=== PATIENT | female | born 1960 | race Caucasian/White ===

== ENCOUNTER → 2018-07-31 | Outpatient (CLI) | payer MEDICARE ==
[~2018-07-31] MED LIST: METH20TA8 PO; QUET200T4 PO; TRAZ300T2 PO; VENL100T PO; VENL75TA PO
== END | disposition home or self-care (01) ==
LOC: CFH 14:18
PROVIDERS: ATTEND Family Medicine
DX: J84.10 Pulmonary fibrosis, unspecified (principal)
CPT/HCPCS: 71046

== ENCOUNTER → 2018-10-06 | Outpatient (CLI) | payer MEDICARE ==
[~2018-10-06] MED LIST changes: +OMNIPAQUE 350 MG/ML, 100ML BOTTLE ONE
== END | disposition home or self-care (01) ==
LOC: CFH 12:33
PROVIDERS: ATTEND Family Medicine
DX: N28.1 Cyst of kidney, acquired (principal)
CPT/HCPCS: 74177; Q9967

== ENCOUNTER → 2019-11-26 | Outpatient (CLI) | payer MEDICARE ==
[~2019-11-26] MED LIST changes: -OMNIPAQUE 350 MG/ML, 100ML BOTTLE ONE
== END | disposition home or self-care (01) ==
LOC: EDSTATUS 11-18 12:30 → RAD 12:33 → EDSTATUS 13:00
PROVIDERS: ATTEND Nurse Practitioner
DX: Z12.31 Encounter for screening mammogram for malignant neoplasm of breast (principal); Z12.2 Encounter for screening for malignant neoplasm of respiratory organs; N64.89 Other specified disorders of breast; I25.10 Atherosclerotic heart disease of native coronary artery without angina pectoris; J84.10 Pulmonary fibrosis, unspecified; J98.4 Other disorders of lung; Z87.891 Personal history of nicotine dependence
CPT/HCPCS: 77063; 77067; G0297

== ENCOUNTER 2019-12-15 19:21 | Emergency (ER) | payer MEDICARE ==
[~2019-12-15] VITALS: Ht 165.1 cm; Wt 62.4 kg
[2019-12-15] MEDS ORDERED: ASPIRIN 81 MG TABLET CHEW PO ONE (20:00)
--- NOTE | 2019-12-15 20:21 | NUR ---
PT. TO ROOM FROM LOBBY AT THIS TIME.
[2019-12-15] MEDS ORDERED: ASPIRIN 81 MG TABLET CHEW ONE (20:29)
--- NOTE | 2019-12-15 20:32 | NUR ---
VONNIE RN: PT MEDICATED PER EMAR. 5 RIGHTS ADDRESSED. ALL MONITORING EQUIPMENT APPLIED. NSR ON THE MONITOR, NO ST CHANGES PRESENT, NO ECTOPY NOTED.
[2019-12-15 21:20] VITALS: BP 130/95
[2019-12-15 21:34] LABS: BASOPHILS # (AUTO) 0.06 x10^3/uL (0-0.1); BASOPHILS % (AUTO) 1 % (0-1); EOSINOPHILS # (AUTO) 0.19 x10^3/uL (0-0.4); EOSINOPHILS % (AUTO) 3 % (1-7); LYMPHOCYTES # (AUTO) 3.07 x10^3/uL (1-3.4); LYMPHOCYTES % (AUTO) 50 % (22-44); MD NO; MEAN CORPUSCULAR HEMOGLOBIN 31.5 pg (27.0-34.8); MEAN CORPUSCULAR HGB CONC 33.3 g/dL (32.4-35.8); MEAN CORPUSCULAR VOLUME 94.8 fL (80-100); MEAN PLATELET VOLUME 8.6 fL (7.4-10.4); MONOCYTES # (AUTO) 0.66 x10^3/uL (0.2-0.8); MONOCYTES % (AUTO) 11 % (2-9); NEUTROPHILS # (AUTO) 2.23 x10^3/uL (1.8-6.8); NEUTROPHILS % (AUTO) 36 % (42-75); PLATELET COUNT 168 x10^3/uL (130-400); RED BLOOD COUNT 4.22 x10^6/uL (3.82-5.3); RED CELL DISTRIBUTION WIDTH 14.5 % (9.6-15.2)
[2019-12-15 21:47] LABS: ALBUMIN 3.7 g/dL (3.4-5.0); ANION GAP 6 mmol/L (5-15); CALCIUM 8.9 mg/dL (8.5-10.1); CHLORIDE 110 mmol/L (98-107)
--- NOTE | 2019-12-15 21:50 | NUR ---
provided pt with mouth swabs
[2019-12-15 21:52] LABS: CREATININE 0.92 mg/dL (0.55-1.02); TROPONIN I < 0.015 ng/mL (0.000-0.045)
== END 2019-12-15 23:01 | disposition home or self-care (01) ==
LOC: ED 20:45
DX: R07.89 Other chest pain (principal)
CPT/HCPCS: 36415; 71046; 80048; 82040; 84484; 85025; 93005; 99285

== ENCOUNTER → 2020-07-08 | Outpatient (CLI) | payer MEDICARE ==
[~2020-07-08] MED LIST changes: +ALPRazolam 1MG TAB ONE
== END | disposition home or self-care (01) ==
LOC: RAD 13:50
PROVIDERS: ATTEND Nurse Practitioner Family
DX: M50.321 Other cervical disc degeneration at C4-C5 level (principal); M47.812 Spondylosis without myelopathy or radiculopathy, cervical region; M48.02 Spinal stenosis, cervical region; M25.78 Osteophyte, vertebrae; R29.898 Other symptoms and signs involving the musculoskeletal system
CPT/HCPCS: 72141

== ENCOUNTER → 2020-07-28 | Outpatient (CLI) | payer MEDICARE ==
[~2020-07-28] MED LIST changes: -ALPRazolam 1MG TAB ONE
== END | disposition home or self-care (01) ==
LOC: CFH 08:17
PROVIDERS: ATTEND Internal Medicine Cardiovascular Disease
DX: R07.89 Other chest pain (principal); R06.02 Shortness of breath
CPT/HCPCS: 78452; 93017; A9502

== ENCOUNTER 2020-09-22 22:07 | Emergency (ER) | payer MEDICARE ==
[~2020-09-22] VITALS: Ht 167.6 cm; Wt 60.2 kg
[2020-09-22 22:14] VITALS: BP 113/74
[2020-09-22] MEDS ORDERED: SODIUM CHLORIDE 0.9% 1,000ML IVBOLUS ONE (23:00)
[2020-09-22 23:07] LABS: BASOPHILS % (AUTO) 1 % (0-1); EOSINOPHILS % (AUTO) 0 % (1-7); LYMPHOCYTES % (AUTO) 31 % (22-44); MEAN CORPUSCULAR HEMOGLOBIN 31.5 pg (27.0-34.8); MEAN CORPUSCULAR HGB CONC 33.4 g/dL (32.4-35.8); MEAN PLATELET VOLUME 8.3 fL (7.4-10.4); MONOCYTES % (AUTO) 10 % (2-9); NEUTROPHILS % (AUTO) 59 % (42-75); PLATELET COUNT 145 x10^3/uL (130-400); RED BLOOD COUNT 4.54 x10^6/uL (3.82-5.3); RED CELL DISTRIBUTION WIDTH 13.5 % (9.6-15.2)
[2020-09-22 23:14] LABS: MD NO
[2020-09-22 23:19] LABS: ALANINE AMINOTRANSFERASE 19 U/L (12-78); ANION GAP 6 mmol/L (5-15); CALCIUM 9.3 mg/dL (8.5-10.1); CHLORIDE 102 mmol/L (98-107); CREATININE 1.12 mg/dL (0.55-1.02)
[2020-09-22 23:21] LABS: ALKALINE PHOSPHATASE 57 U/L (45-117); BILIRUBIN,TOTAL 0.3 mg/dL (0.2-1.0); TOTAL PROTEIN 7.8 g/dL (6.4-8.2)
--- NOTE | 2020-09-22 23:37 | NUR ---
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
[2020-09-22] MEDS ORDERED: ONDANSETRON ODT 4 MG ONE (23:44)
[2020-09-23] MEDS ORDERED: ONDANSETRON ODT 4 MG PO ONE
[2020-09-23] MEDS ORDERED: ONDANSETRON 2MG/ML, 2ML IVPush ONE
== END 2020-09-23 00:26 | disposition home or self-care (01) ==
LOC: ED 22:37
DX: U07.1 COVID-19 (principal); J06.9 Acute upper respiratory infection, unspecified; B34.9 Viral infection, unspecified; R06.02 Shortness of breath; R50.9 Fever, unspecified; R05 Cough
CPT/HCPCS: 71045; 80053; 85025; 87635; 93005; 99285; Q0162

== ENCOUNTER 2020-10-03 15:26 | Emergency (ER) | payer MEDICARE ==
[~2020-10-03] VITALS: Ht 165.1 cm; Wt 58.0 kg
--- NOTE | 2020-10-03 16:04 | NUR ---
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
[2020-10-03 16:23] LABS: ALANINE AMINOTRANSFERASE 18 U/L (12-78); ANION GAP 7 mmol/L (5-15); CALCIUM 9.5 mg/dL (8.5-10.1); CHLORIDE 108 mmol/L (98-107); CREATININE 0.98 mg/dL (0.55-1.02)
[2020-10-03 16:25] LABS: ALKALINE PHOSPHATASE 57 U/L (45-117); BASOPHILS % (AUTO) 1 % (0-1); BILIRUBIN,TOTAL 0.4 mg/dL (0.2-1.0); EOSINOPHILS % (AUTO) 1 % (1-7); LYMPHOCYTES % (AUTO) 23 % (22-44); MEAN CORPUSCULAR HEMOGLOBIN 31.1 pg (27.0-34.8); MEAN CORPUSCULAR HGB CONC 33.8 g/dL (32.4-35.8); MEAN PLATELET VOLUME 8.6 fL (7.4-10.4); MONOCYTES % (AUTO) 17 % (2-9); NEUTROPHILS % (AUTO) 59 % (42-75); PLATELET COUNT 220 x10^3/uL (130-400); RED BLOOD COUNT 4.22 x10^6/uL (3.82-5.3); RED CELL DISTRIBUTION WIDTH 13.1 % (9.6-15.2); TOTAL PROTEIN 7.3 g/dL (6.4-8.2)
[2020-10-03 16:31] LABS: MD NO
--- NOTE | 2020-10-03 17:16 | NUR ---
PT AMBULATED FROM ROOM 10 TO MAIN NURSES STATION. SPO2 AND HR MONITORED. SP02 MAINTAINED AT 91-92%, HR 90-93. PT C/O FEELING WEAK BUT WAS ABLE TO COMPLETE THE ACTIVITY AND RTD TO ROOM W/O INCIDENT. PROVIDER INFORMED
[2020-10-03 17:18] VITALS: BP 104/70
--- NOTE | 2020-10-03 17:47 | NUR ---
DR PLATT AT BEDSIDE. TEST RESULTS, D/C POC DISCUSSED AND QUESTIONS ANSWERED.
--- NOTE | 2020-10-03 18:16 | NUR ---
Patient/Caregiver given discharge instructions and they have confirmed that they understand the instructions. Patient ambulatory with steady gait.
[2020-10-05] MEDS ORDERED: RIVA1TAB PO (18:50)
[2020-10-05] MEDS ORDERED: RIVA20TA PO (18:50)
== END 2020-10-03 18:21 | disposition home or self-care (01) ==
LOC: ED 17:50
DX: U07.1 COVID-19 (principal); J12.89 Other viral pneumonia
CPT/HCPCS: 36415; 71045; 80053; 85025; 93005; 99285